=== PATIENT | female | born 1980 | race African-American/Black ===

== ENCOUNTER 2022-12-08 08:58 | Emergency (ER) | payer OTHER ==
[2022-12-08 09:33] VITALS: BP 131/63; PULSE 75; RESP 20; TEMP 98.4; BMI 33.6
[2022-12-08] MEDS ORDERED: KETOROLAC TROMETHAMINE 30 MG/1 ML VIAL IM ONE (10:06)
[2022-12-08] MEDS ORDERED: CYCLOBENZAPRINE HCL 10 MG TABLET (FP) PO ONE (10:06)
[2022-12-08] MEDS ORDERED: ACETAMINOPHEN 500 MG TABLET (FP) PO ONE (10:06)
[2022-12-08] MEDS ORDERED: LIDOCAINE 5% TOPICAL PATCH TP ONE (10:06)
[2022-12-08] MEDS ORDERED: LIDOCAINE 5% TOPICAL PATCH ONE (10:09)
[2022-12-08] MEDS ORDERED: CYCLOBENZAPRINE HCL 10 MG TABLET (FP) ONE (10:09)
[2022-12-08] MEDS ORDERED: KETOROLAC TROMETHAMINE 30 MG/1 ML VIAL ONE (10:09)
[2022-12-08] MEDS ORDERED: ACETAMINOPHEN 500 MG TABLET (FP) ONE (10:10)
[2022-12-08] MEDS ORDERED: LIDOCAINE PATCH REMOVAL MC SCH (22:00)
== END 2022-12-08 11:32 | disposition home or self-care (01) ==
LOC: JER 08:58 → JERFT 08:58
PROC: 3E023GC Introduction of Other Therapeutic Substance into Muscle, Percutaneous Approach (ICD-10-PCS; principal; 2022-12-08)
DX: M25.551 Pain in right hip (principal)
CPT/HCPCS: 73502-TC-RT-FY; 99284-25

== ENCOUNTER 2024-05-12 07:44 | Emergency (ER) | payer OTHER ==
[2024-05-12 07:53] VITALS: BP 123/78; PULSE 73; RESP 20; TEMP 98.4; BMI 30.7
[2024-05-12] MEDS ORDERED: IBUPROFEN 400 MG TABLET (FP) PO ONE (08:12)
[2024-05-12] MEDS ORDERED: ACETAMINOPHEN 500 MG TABLET (FP) ONE (08:12)
[2024-05-12] MEDS: IBUPROFEN 400 MG TABLET (FP) PO ONE (08:14)
[2024-05-12] MEDS: ACETAMINOPHEN 500 MG TABLET (FP) PO ONE (08:14)
== END 2024-05-12 09:40 | disposition home or self-care (01) ==
LOC: JER 07:44 → JERFT 07:44
DX: M25.561 Pain in right knee (principal); M79.89 Other specified soft tissue disorders
CPT/HCPCS: 73560-TC-RT-FY; 93971-TC; 99284-25